=== PATIENT | female | born 1970 | race Caucasian/White ===

== ENCOUNTER 2022-12-12 13:07 | Outpatient (CLI) | payer MEDICARE ==
--- NOTE | 2022-12-20 09:07 | Mammography Report ---
BILATERAL DIGITAL SCREENING MAMMOGRAM: 12/12/2022 CLINICAL: Routine screening. No prior exams were available for comparison. There are scattered areas of fibroglandular density in both breasts (category b / 25%-50% glandular t issue). No significant masses, calcifications, or other findings are seen in either breast. IMPRESSION: NEGATIVE There is no mammographic evidence of malignancy. A 1 year screening mammogram is recommended. Based on the Tyrer Cuzick model (a risk assessment model) the patients lifetime risk is 8.0% and her 10 year risk is 1.8%. According to the ACR, ACS, and NCCN guidelines, an annual breast MRI exam carrol g with mammogram is recommended if the patients lifetime risk is 20% or greater. This exam was interpreted at Station ID: [id number]. NOTE: For mammograms, a report in lay terms will be sent to the patient. Approximately 15% of breast malignancies will not be visualized mammographically. In the management of a palpable breast mass, a negative mammogram must not discourage biopsy of a clinically suspicious lesion. Electronically Signed By: Sarbjit miller/kuldip:12/20/2022 07:33:22 letter sent: No_Letter ACR BI-RADS Category 1: Negative 3341F PARENCHYMAL PATTERN: (A) - The breast(s) demonstrate(s) scattered fibroglandular densities. BI-RADS CATEGORY: (1) - 1 Mammogram [id number] 1 year screening LATERALITY: (B)
== END 2022-12-12 13:08 | disposition home or self-care (01) ==
LOC: DI.N 13:07
PROVIDERS: ATTEND Nurse Practitioner
DX: Z12.31 Encounter for screening mammogram for malignant neoplasm of breast (principal)

== ENCOUNTER 2023-04-25 08:00 | Outpatient (CLI) | payer MEDICARE | END 2023-04-25 23:59 | disposition home or self-care (01) | LOC: LAB.N 08:00 | PROVIDERS: ATTEND Physician Assistant Medical | DX: R35.0 Frequency of micturition (principal) | CPT/HCPCS: 87077; 87086; 87181 ==

== ENCOUNTER 2023-04-28 18:04 | Emergency (ER) | payer MEDICARE ==
--- NOTE | 2023-04-28 18:15 | ED Physician Documentation ---
History of Present Illness - Stated complaint Stated Complaint: AMS - History obtained from History obtained from: Patient, EMS - History of Present Illness Pain level max: 0 Pain level now: 0 - Additonal information Additional information: Patient is a 52-year-old female brought in by EMS. Reportedly she had a stroke approximately a month ago and is left with residual deficits of decreased mobility and speech difficulties. Reportedly lives at home with her family. Reportedly her family noticed that her speech was slightly different today than it had been. Also that she had been urinating more frequently. Reportedly had a normal urinalysis 2 days ago. No fevers. No vomiting. EMS states that her speech sounds clear to them. Patient denies any complaints at this time. No chest pain. No shortness of breath. No headache. No falls. No trauma. No changes to her medications. Review of Systems Constitutional: denies: Fever, Chills Ears: denies: Ear pain Nose: denies: Rhinorrhea / runny nose, Congestion Respiratory: denies: Dyspnea, Cough GI: denies: Abdominal Pain, Nausea, Vomiting, Diarrhea : denies: Dysuria, Frequency, Hesitancy Skin: denies: Rash Musculoskeletal: denies: Neck pain, Back pain Neurologic: denies: Headache PD PAST MEDICAL HISTORY - Past Medical History Past Medical History: Yes Other Past Medical History: CVA - Past Surgical History Past Surgical History: Yes Neuro: [employer] W[employer] DEVELOPER shunt - Allergies Allergies/Adverse Reactions: Allergies Allergy/AdvReac Type Severity Reaction Status Date / Time No Known Drug Allergies Allergy Verified 04/28/23 18:17 - Living Situation Living Situation: reports: With family Living Arrangement: reports: At home - Social History Does the pt have substance abuse?: No - Family History Family history: reports: Non contributory PD ED PE NORMAL - Vitals Vital signs reviewed: Yes - General General: Alert and oriented X 3, No acute distress, Well developed/nourished - HEENT HEENT: PERRL, Moist mucous membranes - Neck Neck: Supple, no meningeal sign - Cardiac Cardiac: RRR, Strong equal pulses - Respiratory Respiratory: No respiratory distress, Clear bilaterally - Abdomen Abdomen: Soft, Non tender, Non distended - Derm Derm: Warm and dry - Extremities Extremities: No edema - Neuro Neuro: Alert and oriented X 3 - Psych Psych: Normal mood, Normal affect Results - Vitals Vitals: Oxygen O2 Source Room air - Labs Labs: Laboratory Tests 04/28/23 04/28/23 04/28/23 18:30 18:30 18:30 WBC 8.6 RBC 5.32 Hgb 14.0 Hct 44.9 MCV 84.4 MCH 26.3 L MCHC 31.2 L RDW 13.8 Plt Count 349 MPV 10.6 Neut # (Auto) 5.2 Lymph # (Auto) 2.6 [place] # (Auto) 0.6 Eos # (Auto) 0.2 Baso # (Auto) 0.0 Absolute Nucleated RBC 0.00 Nucleated RBC % 0.0 Sodium 140 Potassium 3.4 L Chloride 101 Carbon Dioxide 28 Anion Gap 11.0 BUN 13 Creatinine 0.9 Estimated GFR (MDRD) 66 L Glucose 108 H Calcium 9.7 Total Bilirubin 0.3 AST 15 ALT 41 Alkaline Phosphatase 109 Total Protein 7.6 Albumin 4.4 Globulin 3.2 Albumin/Globulin Ratio 1.4 Urine Color YELLOW Urine Clarity CLEAR Urine pH 5.5 Ur Specific [place]dman 1.015 Urine Protein NEGATIVE Urine Glucose (UA) NEGATIVE Urine Ketones NEGATIVE Urine Occult Blood NEGATIVE Urine Nitrite NEGATIVE Urine Bilirubin NEGATIVE Urine Urobilinogen 0.2 (NORMAL) Ur Leukocyte Esterase NEGATIVE Ur Microscopic Review NOT INDICATED Urine Culture Comments NOT INDICATED - Rads (name of study) head CT Relevant Findings:: Final report received, See rad report PD Medical Decision Making - ED course Complexity details: reviewed results, re-evaluated patient, considered differential, d/w patient, d/w family ED course: 52-year-old female brought in for change in speech pattern according to EMS, when the family arrived they states that she did not have a change in her speech pattern but that she had a seizure tonight that was witnessed. The patient apparently was postictal with EMS but is back to her normal baseline now and was back to her normal baseline upon arrival in the emergency department. No acute abnormalities on head CT. Does have a malpositioned [employer] DEVELOPER shunt, family states that it has been that way for approximately 40 years. Patient is currently asymptomatic. Well-appearing, nontoxic. Will have her follow-up with her neurologist for further care. No indication to change medications at this time. No status epilepticus. No evidence of sepsis or new stroke. No evidence of hemorrhage. Patient and family counseled regarding signs and symptoms for which I believe and urgent re-evaluation would be necessary. Patient with good understanding of and agreement to plan and is comfortable going home at this time This document was made in part using voice recognition software. While efforts are made to proofread this document, sound alike and grammatical errors may occur. Departure - Departure Disposition: 01 Home, Self Care Clinical Impression: Recurrent seizures Condition: Good Instructions: ED Seizure Recurrent Follow-Up: your,doctor in 1 week [Other] Comments: Her CT scan and laboratory test do not show any acute abnormalities today. She does have a malpositioned PHP [employer] DEVELOPER shunt, but this is likely chronic as it has been in place for 47 years. Please follow-up with her doctor for further care. It is likely that she had a recurrent seizure today. As her last seizure was several years ago, generally we will not start antiepileptic medication at this time but if she has another seizure her neurologist may want to start medication. Forms: PCP List Discharge Date/Time: 04/28/23 20:15 NIHSS - Time Time: 18:10 - Level of Consciousness Level of consciousness: (0) Alert, Keenly responsive LOC Questions: (0) Answers both Q's correct LOC Commands: (0) Performs both correctly - Gaze Best Gaze: (0) Normal - Visual Visual: (0) No loss - Facial Palsy Facial Palsy: (0) Normal, symmetrical movement - Motor Arms (both separate) Motor Arm (right): (0) No drift Motor Arm (left): (0) No drift - Motor Legs (both separate) Motor Leg (right): (0) No drift Motor Leg (left): (0) No drift - Limb Ataxia Limb Ataxia: (0) Absent - Sensory Sensory: (0) Normal - Best Language Best Language: (0) No aphasia - Dysarthria Dysarthria: (0) Normal - Extinction and Inattention (formally neg Extinction and inattention: (0) No abnormality - Total Score/Results Total Score/Result: 0
[2023-04-28 18:34] LABS: BILIRUBIN,URINE NEGATIVE (NEGATIVE); GLUCOSE, URINE (UA) NEGATIVE (NEGATIVE); KETONES,URINE (UA) NEGATIVE (NEGATIVE); LEUKOCYTE ESTERASE, URINE NEGATIVE (NEGATIVE); NITRITE,URINE NEGATIVE (NEGATIVE); OCCULT BLOOD,URINE NEGATIVE (NEGATIVE); PH,URINE 5.5 PH (5.0-7.5); PROTEIN,URINE NEGATIVE (NEGATIVE); UROBILINOGEN,URINE 0.2 (NORMAL) E.U./dL (NORMAL)
[2023-04-28 18:35] LABS: CLARITY,URINE CLEAR (CLEAR)
[2023-04-28 18:48] LABS: BASOPHILS % (AUTO) 0.5 %; EOSINOPHILS # (AUTO) 0.2 10^3/uL (0.0-0.7); EOSINOPHILS % (AUTO) 1.9 %; HCT - HEMATOCRIT 44.9 % (37.0-47.0); LYMPHOCYTES # (AUTO) 2.6 10^3/uL (1.5-3.5); MEAN CORPUSCULAR HEMOGLOBIN 26.3 pg (27.0-31.0); MEAN CORPUSCULAR HGB CONC 31.2 g/dL (32.0-36.0); MEAN CORPUSCULAR VOLUME 84.4 fL (81.0-99.0); MEAN PLATELET VOLUME 10.6 fL (7.9-10.8); MONOCYTES # (AUTO) 0.6 10^3/uL (0.0-1.0); MONOCYTES % (AUTO) 7.1 %; NEUTROPHILS # (AUTO) 5.2 10^3/uL (1.5-6.6); PLT - PLATELET COUNT 349 10^3/uL (130-450); RED BLOOD COUNT 5.32 10^6/uL (4.20-5.40); RED CELL DISTRIBUTION WIDTH 13.8 % (12.0-15.0); WHITE BLOOD COUNT 8.6 x10^3/uL (4.8-10.8)
[2023-04-28 19:01] LABS: ALBUMIN 4.4 g/dL (3.2-5.5); ALBUMIN/GLOBULIN RATIO 1.4 (1.0-2.2); BILIRUBIN,TOTAL 0.3 mg/dL (0.2-1.0); CALCIUM 9.7 mg/dL (8.5-10.3); CREATININE 0.9 mg/dL (0.6-1.3); POTASSIUM 3.4 mmol/L (3.5-4.5); TOTAL PROTEIN 7.6 g/dL (6.4-8.9)
[2023-04-28 19:20] VITALS: BP 121/78; O2SAT 97
--- NOTE | 2023-04-28 19:42 | CT Report ---
PROCEDURE: Head WO INDICATIONS: aloc, recent stroke TECHNIQUE: Noncontrast 4.5 mm thick angled axial sections acquired from the foramen magnum to the vertex. For r adiation dose reduction, the following was used: automated exposure control, adjustment of mA and/or kV according to patient size. COMPARISON: None. FINDINGS: Image quality: Excellent. CSF spaces: Basal cisterns are patent. No extra-axial fluid collections. Ventricles are normal in size and shape. ORDER PICKER shunt catheter terminates adjacent to the anterior temporal lobe. Basal ganglia c alcifications. Brain: No midline shift. No intracranial masses or hemorrhage. Argueta-white matter interface is norm al. Resection versus scoliosis of the cerebellum. Leukoaraiosis, commonly caused by chronic small ve ssel ischemic disease. Age-related volume loss. Skull and face: Calvarium and visualized facial bones are intact, without suspicious lesions. Sinuses: Visualized sinuses and mastoids are clear. IMPRESSION: ORDER PICKER shunt catheter tip appears misplaced, terminating anterior to the left temporal lobe. No acute abnormality otherwise. Reviewed by: Freedom Hairston MD on 04/28/2023 7:41 PM PST Approved by: Freedom Hairston MD on 04/28/2023 7:41 PM PST Station ID: [id number]
== END 2023-04-28 20:15 | disposition home or self-care (01) ==
LOC: EDUNIT# → ED 18:04
DX: G40.909 Epilepsy, unspecified, not intractable, without status epilepticus (principal)
CPT/HCPCS: 36415; 80053; 81001; 81003; 85025; 87086; 99283; 99284

== ENCOUNTER 2023-05-26 17:49 | Outpatient (CLI) | payer MEDICARE | END 2023-05-26 17:50 | disposition critical access hospital (66) | LOC: EMS 17:49 | DX: S01.01XA Laceration without foreign body of scalp, initial encounter (principal); W01.0XXA Fall on same level from slipping, tripping and stumbling without subsequent striking against object, initial encounter; Y92.003 Bedroom of unspecified non-institutional (private) residence as the place of occurrence of the external cause; Z79.02 Long term (current) use of antithrombotics/antiplatelets | CPT/HCPCS: A0425; A0429 ==

== ENCOUNTER 2023-05-26 18:03 | Emergency (ER) | payer MEDICARE ==
--- NOTE | 2023-05-26 18:09 | ED Physician Documentation ---
PD HPI HEAD INJURY - Stated complaint Stated Complaint: GLF - History obtained from History obtained from: Family, EMS - Additional information Additional information: 52-year-old presents by ambulance accompanied by father for head injury. She has a history of developmental delay, brain tumor as a child, and more recently has had a couple of strokes. She is on Plavix. There was no reported loss of consciousness. It was reported as just a trip and fall hitting the back of her head where she does have a wound there. Last tetanus is unknown. Most of the history is from the father due to developmental delay. 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 - Allergies Allergies/Adverse Reactions: Allergies Allergy/AdvReac Type Severity Reaction Status Date / Time No Known Drug Allergies Allergy Verified 05/26/23 18:10 - Social History Does the pt smoke?: No Smoking Status: Never smoker Does the pt drink ETOH?: No Does the pt have substance abuse?: No - Immunizations Immunizations are current?: Yes - POLST Patient has POLST: No PD ED PE NORMAL - Vitals Vital signs reviewed: Yes - General General: Other (Developmental delay but calm and cooperative, verbal and follows simple commands.) - HEENT HEENT: PERRL, EOMI, Other (2 cm of shallow vertical laceration on the right occiput) - Neck Neck: No bony TTP - 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 Eye Opening: Spontaneous Motor: Obeys Commands Verbal: Confused (Baseline per father) GCS Score: 14 Results - Vitals Vitals: Vital Signs - 24 hr 05/26/23 05/26/23 18:10 20:00 Temperature 36.1 C L Heart Rate 96 Respiratory 18 15 Rate Blood Pressure 144/88 H O2 Saturation 96 Oxygen O2 Source Room air - Rads (name of study) CT of the head and cervical spine Relevant Findings:: Final report received, EMP independent interpretation of test Procedures - Laceration (location) Right posterior scalp Length in cm: 2 Wound type: Linear, Superficial Wound preparation: Irrigated copiously NS Skin layer closure: Dermabond Other: Tetanus booster given PD Medical Decision Making - ED course ED course: CT of the head and cervical spine were negative for acute traumatic injuries. There was a notes of misplacement of the V GRADES 1 THRU 5 TEACHER shunt tip. This was discussed with dad, seems like a chronic phenomenon and he already knew that it was no longer functional, stating to me "it has been that way forever." After dermabond of R scalp lac, v light persistent venous ooze. Family very anxious about this ane more dermabond placed. V small amt of bleeding but family still v anxious. Offered to remove dermabond and do marlene instead but after reassurance they were ok with current POC. Departure - Departure Disposition: 01 Home, Self Care Clinical Impression: Injury of head and neck Qualifiers: Encounter type: initial encounter Qualified Code(s): S09.90XA - Unspecified injury of head, initial encounter Occipital scalp laceration Qualifiers: Encounter type: initial encounter Qualified Code(s): S01.01XA - Laceration without foreign body of scalp, initial encounter Condition: Good Record reviewed to determine appropriate education?: Yes Instructions: ED Head Injury Closed Sleep Mon , ED Laceration Facial Skin Glue Discharge Date/Time: 05/26/23 20:00
[2023-05-26 18:16] VITALS: BP 144/88; O2SAT 96
--- NOTE | 2023-05-26 18:37 | CT Report ---
PROCEDURE: Cervical Spine WO INDICATIONS: head inj TECHNIQUE: Noncontrast 3 mm thick sections acquired from the skull base to the T4 level. Sagittal and coronal r eformats were then constructed. For radiation dose reduction, the following was used: automated exp osure control, adjustment of mA and/or kV according to patient size. COMPARISON: None. FINDINGS: Image quality: Excellent. Bones: No fractures or dislocations. Visualized superior ribs are intact. Soft tissues: Prevertebral soft tissues are normal in thickness. No paravertebral hematomas. No ap ical pneumothoraces. IMPRESSION: No acute, displaced fracture or traumatic subluxation. Reviewed by: Lang Reinoso MD on 05/26/2023 6:36 PM PST Approved by: Lang Reinoso MD on 05/26/2023 6:36 PM PST Station ID: [id number]
--- NOTE | 2023-05-26 18:42 | CT Report ---
PROCEDURE: Head WO INDICATIONS: head inj TECHNIQUE: Noncontrast 4.5 mm thick angled axial sections acquired from the foramen magnum to the vertex. For r adiation dose reduction, the following was used: automated exposure control, adjustment of mA and/or kV according to patient size. COMPARISON: 04/28/2023. FINDINGS: Image quality: Excellent. CSF spaces: Left ventricular shunt catheter position is unchanged. Basal cisterns are patent. No ext ra-axial fluid collections. Ventricles are normal in size and shape. Brain: No midline shift. Benign-appearing calcifications are noted in bilateral basal ganglia. Right frontal lobe encephalomalacia is again seen. No parenchymal hemorrhage. Argueta-white matter interface is normal. Skull and face: Postcraniotomy changes are again seen in posterior fossa. No gross acute skull fractu re. Sinuses: Visualized sinuses and mastoids are clear. IMPRESSION: 1. No evidence of acute intracranial pathology. No significant changes from prior study. 2. Left-sided SHAKE MAKER shunt catheter tip is again seen terminating in left middle cranial fossa anterior t o the temporal lobe unchanged from prior study. Reviewed by: Lang Reinoso MD on 05/26/2023 6:41 PM PST Approved by: Lang Reinoso MD on 05/26/2023 6:41 PM PST Station ID: [id number]
[2023-05-26] MEDS: TETANUS/DIPHTHERIA/PERTUSSIS 0.5 ML SYRINGE IM ONE (18:54)
== END 2023-05-26 20:00 | disposition home or self-care (01) ==
LOC: EDUNIT# → ED 18:03
DX: S09.90XA Unspecified injury of head, initial encounter (principal); S01.01XA Laceration without foreign body of scalp, initial encounter; W01.0XXA Fall on same level from slipping, tripping and stumbling without subsequent striking against object, initial encounter; Z98.2 Presence of cerebrospinal fluid drainage device
CPT/HCPCS: 12001; 90471; 99283; 99284

== ENCOUNTER 2023-05-28 01:51 | Outpatient (CLI) | payer MEDICARE | END 2023-05-28 01:52 | disposition EMS.NT | LOC: EMS 01:51 | DX: Z03.89 Encounter for observation for other suspected diseases and conditions ruled out (principal) ==

== ENCOUNTER 2023-09-12 02:17 | Outpatient (CLI) | payer MEDICARE | END 2023-09-12 23:59 | disposition EMS.NT | LOC: EMS 02:17 | DX: Z03.89 Encounter for observation for other suspected diseases and conditions ruled out (principal) ==

== ENCOUNTER 2023-10-30 11:27 | Outpatient (CLI) | payer MEDICARE | END 2023-10-30 22:49 | disposition EMS.NT | LOC: EMS 11:27 | DX: Z03.89 Encounter for observation for other suspected diseases and conditions ruled out (principal) ==

== ENCOUNTER 2023-12-01 06:53 | Outpatient (CLI) | payer MEDICARE | END 2023-12-01 23:59 | disposition EMS.NT | LOC: EMS 06:53 | DX: Z03.89 Encounter for observation for other suspected diseases and conditions ruled out (principal) ==

== ENCOUNTER 2023-12-28 10:13 | Outpatient (CLI) | payer MEDICARE | END 2023-12-28 23:59 | disposition left against medical advice (07) | LOC: EMS 10:13 | DX: Z03.89 Encounter for observation for other suspected diseases and conditions ruled out (principal); Z79.01 Long term (current) use of anticoagulants ==

== ENCOUNTER 2023-12-31 14:19 | Outpatient (CLI) | payer MEDICARE | END 2023-12-31 23:59 | disposition EMS.NT | LOC: EMS 14:19 | DX: Z03.89 Encounter for observation for other suspected diseases and conditions ruled out (principal) ==